=== PATIENT | male | born 1960 | race Caucasian/White ===

== ENCOUNTER 2021-07-20 20:04 | Emergency (ER) | payer BC, OTHER ==
[2021-07-20] MEDS ORDERED: Ondansetron 4 MG/2 ML SDV IVPUSH ONE (20:46)
[2021-07-20] MEDS ORDERED: Sodium Chloride 0.9% 1,000 ML IV SCH (21:00)
[2021-07-20] MEDS: Sodium Chloride 0.9% 10 ML Syringe FLUSH PRN ×2 (21:12→22:33)
[2021-07-20] MEDS ORDERED: Diatrizoate Meglumine/Diatrizoate Sodium 37% 120 ML Bottle PO ONE (22:32)
[2021-07-20] MEDS ORDERED: Iopamidol 612 MG/ML 100 ML Bottle IVPUSH ONE (22:32)
[2021-07-20] MEDS ORDERED: Sodium Chloride 0.9% 10 ML SDV FLUSH ONE (22:32)
[2021-07-20] MEDS ORDERED: Promethazine 25 MG Tab PO ONE (23:09)
== END 2021-07-20 23:51 | disposition home or self-care (01) ==
LOC: JD.ED 20:04
DX: K92.0 Hematemesis (principal); Q89.1 Congenital malformations of adrenal gland
CPT/HCPCS: 36415; 74177; 80053; 80307; 81001; 83690; 85025; 86140; 96374; 99284; J2405; J7030; J8597; Q9963; Q9967; 99285